=== PATIENT | male | born 1990 | race Caucasian/White ===

== ENCOUNTER 2022-05-28 17:30 | Emergency (ER) | payer MEDICAID ==
[~2022-05-28] VITALS: Ht 180.3 cm; Wt 79.4 kg
[2022-05-28] MEDS ORDERED: BUPRENORPHIN-N1 EAC1 SL (18:17)
[2022-05-28] MEDS ORDERED: IBUP600 PO (19:03)
[2022-05-28] MEDS ORDERED: Robaxin750 MG PO (19:03)
== END 2022-05-28 19:16 | disposition home or self-care (01) ==
LOC: ER 17:30
DX: S76.211A Strain of adductor muscle, fascia and tendon of right thigh, initial encounter (principal); G57.21 Lesion of femoral nerve, right lower limb; F17.200 Nicotine dependence, unspecified, uncomplicated; Z79.899 Other long term (current) drug therapy; X58.XXXA Exposure to other specified factors, initial encounter
CPT/HCPCS: 99283; A9270

== ENCOUNTER 2022-11-10 13:15 | Emergency (ER) | payer OTHER ==
[~2022-11-10] VITALS: Ht 172.7 cm; Wt 74.8 kg
[~2022-11-10 13:15] MED LIST: BUPRENORPHIN-N1 EAC1 SL; IBUP600 PO; Robaxin750 MG PO
[2022-11-10 15:30] VITALS: BP 136/89
[2022-11-10] MEDS ORDERED: CEPH500 PO (15:51)
[2022-11-10] MEDS ORDERED: PAXIL2010 PO (19:02)
[2022-11-10] MEDS ORDERED: TRAZ150T57 PO (19:03)
== END 2022-11-10 15:50 | disposition home or self-care (01) ==
LOC: ER 13:15
DX: S60.552A Superficial foreign body of left hand, initial encounter (principal); S60.551A Superficial foreign body of right hand, initial encounter; F17.200 Nicotine dependence, unspecified, uncomplicated; W45.8XXA Other foreign body or object entering through skin, initial encounter; Z79.899 Other long term (current) drug therapy
CPT/HCPCS: 99283